=== PATIENT | female | born 1940 | race Caucasian/White ===

== ENCOUNTER 2018-05-02 13:35 | Emergency (ER) | payer MEDICARE, OTHER ==
[~2018-05-02] VITALS: Ht 157.5 cm; Wt 100.0 kg
[2018-05-02 14:09] VITALS: BP 179/91
== END 2018-05-02 16:51 | disposition home or self-care (01) ==
LOC: ER 13:35
DX: R25.2 Cramp and spasm (principal)
CPT/HCPCS: 93971; 99284

== ENCOUNTER 2023-10-31 10:34 | Day surgery (SDC) | payer BC ==
[2023-10-28 13:02] LABS: EOSINOPHILS # (AUTO) 0.1 X10'3 (0-0.9); HEMOGLOBIN 14.3 g/dl (12.0-16.0); LYMPHOCYTES # (AUTO) 2.3 X10'3 (1.1-4.8); MONOCYTES # (AUTO) 0.5 X10'3 (0-0.9)
[2023-10-28 13:03] LABS: BASOPHILS # (AUTO) 0.1 X10'3 (0-0.2); BASOPHILS % (AUTO) 0.7 % (0-1); HEMATOCRIT 42.6 % (35.0-45.0); LYMPHOCYTES % (AUTO) 28.6 % (21-51); MEAN CORPUSCULAR HEMOGLOBIN 30.7 PG (27.0-31.0); MEAN CORPUSCULAR HGB CONC 33.7 g/dL (33.0-36.5); MEAN CORPUSCULAR VOLUME 91.1 FL (78-98); MEAN PLATELET VOLUME 9.4 FL (7.4-10.4); MONOCYTES % (AUTO) 5.8 % (2-12); NEUTROPHILS # (AUTO) 5.2 X10'3 (1.8-7.7); NEUTROPHILS % (AUTO) 63.9 % (42-75); PLATELET COUNT 191 X10'3 (140-440); RED BLOOD COUNT 4.68 X10'6 (4.20-5.60); RED CELL DISTRIBUTION WIDTH 13.6 % (11.5-14.5); WHITE BLOOD COUNT 8.1 X10'3 (4.5-11.0)
[2023-10-28 13:14] LABS: APTT 28 SECONDS (22-32); PROTHROMBIN TIME 10.9 SECONDS (9.0-12.0)
[2023-10-28 13:19] LABS: ALBUMIN 3.3 G/DL (3.4-5.0); ANION GAP 9 (8-16); BLOOD UREA NITROGEN 21 MG/DL (7-18); BUN/CREATININE RATIO 17.8 (10.0-20.0); CALCIUM 9.2 MG/DL (8.5-10.1); CHLORIDE 101 MMOL/L (99-107); CHOL/HDL RATIO 4.1 (0.00-4.99); CHOLESTEROL 174 MG/DL (0-200); CREATININE 1.18 MG/DL (0.40-0.90); GLUCOSE 133 MG/DL (70-104); HDL CHOLESTEROL 42 MG/DL (35-60); LDL CHOLESTEROL 108 MG/DL (50-100); POTASSIUM 3.9 MMOL/L (3.5-5.1); SODIUM 136 MMOL/L (135-145); TRIGLYCERIDES 190 MG/DL (20-135); eGFR 44 ML/MIN
[~2023-10-31] VITALS: Ht 158.8 cm; Wt 92.0 kg
[2023-10-31] VITALS (8 sets, daily range): BP systolic 144–192; BP diastolic 58–105; PULSE 71–82; RESP 12–17; TEMP 97.8; O2SAT 93–96
[2023-10-31] MEDS ORDERED: FURO40TA4 PO (11:06)
[2023-10-31] MEDS ORDERED: OMEP20CA16 PO (11:06)
[2023-10-31] MEDS: normal saline 1000ml 1,000 ML IV SCH (12:32)
[2023-10-31] MEDS: LORazepam 0.5 MG tablet PO PRN (12:32)
[2023-10-31] MEDS: diphenhydrAMINE 25mg capsule PO PRN (12:33)
[2023-10-31] MEDS ORDERED: LIDOcaine 1% (10mg/ml) 2ml vial ONE (13:24)
[2023-10-31] MEDS ORDERED: heparin 1,000unit/ml 10ml vial 10 ML ONE (13:25)
[2023-10-31] MEDS ORDERED: midazolam 1 mg/ML 2ml injection ONE (13:25)
[2023-10-31] MEDS ORDERED: iohexol 350MG/ML 100ml bottle IV ONE (13:25)
[2023-10-31] MEDS ORDERED: verapamil 2.5 mg/ml inj IV ONE (13:25)
[2023-10-31] MEDS ORDERED: fentaNYL/PF 50MCG/1 ML 2ML syringe ONE (13:25)
[2023-10-31] MEDS ORDERED: nitroGLYCERIN 500mcg/5mL D5W 5 ML IV ONE (13:26)
[2023-10-31] MEDS ORDERED: HYDROcodone/acetaminophen 10/325mg tab PO PRN (14:45)
[2023-10-31] MEDS ORDERED: HYDROcodone/acetaminophen 5mg/325mg tablet PO PRN (14:45)
[2023-10-31 15:31] LABS: ISTAT HGB ART 13.3 g/dl (12.0-16.0); ISTAT Hct ART 39 %PCV (35-45); ISTAT O2 SATURATION ARTERIAL 94 % (95-98); ISTAT SOURCE ART
[2023-11-01 06:29] LABS: ISTAT HGB MIX 13.9 g/dl (12.0-16.0); ISTAT Hct MIX 41 %PCV (35-45); ISTAT O2 SATURATION MIX VENOUS 69 % (60-80); ISTAT SOURCE VEN
== END 2023-10-31 16:42 | disposition home or self-care (01) ==
LOC: SSTAY O 10:34
PROVIDERS: ATTEND Student in an Organized Health Care Education/Training Program
DX: I35.0 Nonrheumatic aortic (valve) stenosis (principal); I49.3 Ventricular premature depolarization; I10 Essential (primary) hypertension; E78.00 Pure hypercholesterolemia, unspecified; Z79.899 Other long term (current) drug therapy; Z98.890 Other specified postprocedural states; Z88.8 Allergy status to other drugs, medicaments and biological substances
CPT/HCPCS: 36415; 80048; 80061; 82803; 85014; 85025; 85610; 85730; 93005; 93456; 99152; J1644; J2250; J3010; J3490; J7030; Q0163; Q9967; 99153; A6258; A6402; C1751; C1769; C1894

== ENCOUNTER → 2023-11-28 | Outpatient (CLI) | payer BC ==
[~2023-11-28] MED LIST: FURO40TA4 PO; IODIXANOL 320 MG/ML INFUS..BTL 100ML IV ONE; OMEP20CA16 PO; metoprolol tartrate 1mg/ml inj IV ONE
[2023-11-28 11:38] LABS: EOSINOPHILS # (AUTO) 0.1 X10'3 (0-0.9); HEMOGLOBIN 14.4 g/dl (12.0-16.0); LYMPHOCYTES # (AUTO) 2.1 X10'3 (1.1-4.8); MEAN PLATELET VOLUME 9.9 FL (7.4-10.4); MONOCYTES # (AUTO) 0.6 X10'3 (0-0.9); RED CELL DISTRIBUTION WIDTH 14.1 % (11.5-14.5)
[2023-11-28 11:41] LABS: BASOPHILS # (AUTO) 0.1 X10'3 (0-0.2); BASOPHILS % (AUTO) 0.7 % (0-1); EOSINOPHILS % (AUTO) 1.7 % (0-6); HEMATOCRIT 43.9 % (35.0-45.0); LYMPHOCYTES % (AUTO) 27.8 % (21-51); MEAN CORPUSCULAR HEMOGLOBIN 30.3 PG (27.0-31.0); MEAN CORPUSCULAR HGB CONC 32.9 g/dL (33.0-36.5); MONOCYTES % (AUTO) 7.8 % (2-12); NEUTROPHILS # (AUTO) 4.6 X10'3 (1.8-7.7); PLATELET COUNT 174 X10'3 (140-440); RED BLOOD COUNT 4.77 X10'6 (4.20-5.60); WHITE BLOOD COUNT 7.4 X10'3 (4.5-11.0)
[2023-11-28 11:54] LABS: APTT 27 SECONDS (22-32); PROTHROMBIN TIME 10.8 SECONDS (9.0-12.0)
[2023-11-28 11:57] LABS: ALANINE AMINOTRANSFERASE 20 U/L (12-78); ALBUMIN 3.2 G/DL (3.4-5.0); ALBUMIN/GLOBULIN RATIO 0.7 (1.1-1.5); ALKALINE PHOSPHATASE 102 IU/L (46-116); ANION GAP 9 (8-16); ASPARTATE AMINO TRANSFERASE 17 U/L (10-37); BILIRUBIN,TOTAL 0.3 MG/DL (0.1-1.0); BLOOD UREA NITROGEN 22 MG/DL (7-18); CALCIUM 9.1 MG/DL (8.5-10.1); CHLORIDE 105 MMOL/L (99-107); CREATININE 1.16 MG/DL (0.40-0.90); GLUCOSE 104 MG/DL (70-104); POTASSIUM 4.2 MMOL/L (3.5-5.1); SODIUM 140 MMOL/L (135-145); TOTAL CARBON DIOXIDE 25.8 MMOL/L (24-32); TOTAL PROTEIN 7.7 G/DL (6.4-8.2); eGFR 45 ML/MIN
[2023-11-28 12:03] LABS: PRO BRAIN NATRIURETIC PEPTIDE 208 PG/ML (0-450)
== END | disposition home or self-care (01) ==
LOC: RAD 10:55
PROVIDERS: ATTEND Internal Medicine Cardiovascular Disease
DX: K57.30 Diverticulosis of large intestine without perforation or abscess without bleeding (principal); I70.90 Unspecified atherosclerosis; J39.8 Other specified diseases of upper respiratory tract; E04.1 Nontoxic single thyroid nodule; I65.29 Occlusion and stenosis of unspecified carotid artery; I35.0 Nonrheumatic aortic (valve) stenosis; R06.02 Shortness of breath; Z90.711 Acquired absence of uterus with remaining cervical stump
CPT/HCPCS: 71046; 71275; 74174; 75572; 80053; 83880; 85025; 85610; 85730; J3490; Q9967

== ENCOUNTER 2024-01-19 05:55 | Inpatient (IN) | payer BC ==
[2024-01-11 15:46] LABS: BASOPHILS # (AUTO) 0.1 X10'3 (0-0.2); BASOPHILS % (AUTO) 0.8 % (0-1); EOSINOPHILS # (AUTO) 0.1 X10'3 (0-0.9); EOSINOPHILS % (AUTO) 1.5 % (0-6); LYMPHOCYTES # (AUTO) 3.1 X10'3 (1.1-4.8); LYMPHOCYTES % (AUTO) 34.3 % (21-51); MEAN CORPUSCULAR HEMOGLOBIN 30.5 PG (27.0-31.0); MEAN CORPUSCULAR HGB CONC 33.2 g/dL (33.0-36.5); MEAN CORPUSCULAR VOLUME 91.9 FL (78-98); MEAN PLATELET VOLUME 9.7 FL (7.4-10.4); MONOCYTES # (AUTO) 0.6 X10'3 (0-0.9); MONOCYTES % (AUTO) 6.2 % (2-12); NEUTROPHILS # (AUTO) 5.2 X10'3 (1.8-7.7); NEUTROPHILS % (AUTO) 57.2 % (42-75); PRE OP HEMATOCRIT 44.6 % (35.0-45.0); PRE OP HEMOGLOBIN 14.8 g/dL (12.0-16.0); PRE OP PLATELET COUNT 206 X10'3 (140-440); RED BLOOD COUNT 4.85 X10'6 (4.20-5.60); RED CELL DISTRIBUTION WIDTH 13.9 % (11.5-14.5)
[2024-01-11 15:50] LABS: BILIRUBIN,URINE NEGATIVE (Neg); CLARITY,URINE SLIGHTLY CLOUDY (Clear); COLOR,URINE YELLOW (Yellow); GLUCOSE, URINE NEGATIVE (Neg); KETONES,URINE NEGATIVE (Neg); LEUKOCYTE ESTERASE ,URINE LARGE (Neg); NITRITES, URINE NEGATIVE (Neg); OCCULT BLOOD,URINE TRACE-INTACT (Neg); PROTEIN,URINE NEGATIVE (Neg); UROBILINOGEN,URINE 0.2 E.U/dL (0.2-1.0)
[2024-01-11 15:51] LABS: UA COLLECTION TYPE CLN CATCH MIDSTREAM
[2024-01-11 15:57] LABS: WBC,URINE 30-50 /HPF (0-4)
[2024-01-11 15:58] LABS: BACTERIA,URINE 2+ /HPF (Neg); RBC,URINE NONE SEEN /HPF (0-2); SQUAMOUS EPITHELIAL CELL,UR MODERATE /LPF (FEW)
[2024-01-11 16:25] LABS: PRE OP INR 1.1 INR; PRE OP PROTIME 11.3 SECONDS (9.0-12.0)
[2024-01-11 16:28] LABS: ALBUMIN 3.4 G/DL (3.4-5.0); ALBUMIN/GLOBULIN RATIO 0.7 (1.1-1.5); ALKALINE PHOSPHATASE 120 IU/L (46-116); BLOOD UREA NITROGEN 22 MG/DL (7-18); BUN/CREATININE RATIO 19.8 (10.0-20.0); CALCIUM 9.4 MG/DL (8.5-10.1); CHLORIDE 103 MMOL/L (99-107); CREATININE 1.11 MG/DL (0.40-0.90); PRE OP ALT 15 U/L (30-65); PRE OP ANION GAP 7 (8-16); PRE OP AST 14 U/L (10-37); PRE OP BILIRUB, TOTAL 0.6 MG/DL (0.0-1.0); PRE OP GLUCOSE 120 MG/DL (70-104); PRE OP POTASSIUM 3.4 MMOL/L (3.4-5.1); PRE OP SODIUM 139 MMOL/L (135-145); PRO BRAIN NATRIURETIC PEPTIDE 283 PG/ML (0-450); TOTAL CARBON DIOXIDE 28.7 MMOL/L (24-32); TOTAL PROTEIN 8.1 G/DL (6.4-8.2); eGFR 47 ML/MIN
[2024-01-18] MEDS: phenylephrine inj 50 MG in normal saline 250ml IV solN IV SCH (11:40)
[2024-01-18] MEDS: nitroPRUSSIDE (NIPRIDE) (200MCG/ML) 100ML Drip IV SCH (11:40)
[~2024-01-19] VITALS: Ht 157.5 cm; Wt 91.4 kg
[2024-01-19] VITALS (27 sets, daily range): BP systolic 120–205; BP diastolic 57–124; PULSE 70–106; RESP 10–18; TEMP 97.3–97.9; O2SAT 94–100
[2024-01-19] MEDS: cefazolin 2gm/D5W 100mL 100 ML IV ONE (05:30)
[2024-01-19] MEDS: vancomycin 1,500 MG in NS 300ml IV soln IV ONE (05:30)
[~2024-01-19 05:55] MED LIST changes: +ASPI81TA52 PO; +CHOL200013 PO; +CYAN100097 PO; -IODIXANOL 320 MG/ML INFUS..BTL 100ML IV ONE; +aspirin 325mg tablet PO ONE; -metoprolol tartrate 1mg/ml inj IV ONE
[2024-01-19] MEDS ORDERED: heparin 1,000 UNITS/NS 500ml 1,500 ML ONE (06:32)
[2024-01-19] MEDS ORDERED: iohexol 350MG/ML 100ml bottle IV ONE (06:32)
[2024-01-19] MEDS ORDERED: LIDOcaine 1% 30ml preserv. free vial ONE (06:32)
[2024-01-19] MEDS: famotidine 20mg tablet PO ONE (06:48)
[2024-01-19] MEDS: aspirin 325mg tablet PO ONE (06:48)
[2024-01-19] MEDS: ringers solution, lacted 1,000 ML IV SCH ×2 (06:49→20:36)
[2024-01-19] MEDS ORDERED: fentaNYL/PF 50MCG/1 ML 2ML syringe ONE (06:58)
[2024-01-19] MEDS ORDERED: heparin 1,000unit/ml 10ml vial 10 ML ONE (07:38)
[2024-01-19] MEDS ORDERED: ePHEDrine 50MG/ML INJ. ONE (07:38)
[2024-01-19] MEDS ORDERED: 0.9 % SODIUM CHLORIDE 10 ML VIAL ONE (07:38)
[2024-01-19] MEDS ORDERED: midazolam 1 mg/ML 2ml injection ONE (07:38)
[2024-01-19] MEDS: furosemide 40mg tablet PO SCH (08:00)
[2024-01-19] MEDS: cholecalciferol (vitamin D3) 1,000 unit (25mcg) tablet PO SCH (08:00)
[2024-01-19] MEDS: aspirin 81mg, enteric-coated 1 TAB TABLET.DR PO SCH (08:00)
[2024-01-19] MEDS ORDERED: propofol inj 20 ML IV ONE ×2 (08:07)
[2024-01-19] MEDS ORDERED: magnesium sulf-water 4G/100mL 100 ML IV PRN (08:30)
[2024-01-19] MEDS ORDERED: potassium Cl 40MEQ/270ML bag 250 ML IV PRN (08:30)
[2024-01-19] MEDS ORDERED: potassium CL 10mEq/100ml bag 100 ML IV PRN (08:30)
[2024-01-19] MEDS ORDERED: magnesium sulf-water 2g/50mL 50 ML IV PRN (08:30)
[2024-01-19] MEDS ORDERED: potassium Cl 20mEq/100mL bag 100 ML IV PRN (08:30)
[2024-01-19] MEDS ORDERED: labetalol 20mg/4ml (5mg/ml) syringe IV PRN (08:30)
[2024-01-19] MEDS ORDERED: diphenhydrAMINE 25mg capsule PO PRN (08:30)
[2024-01-19] MEDS ORDERED: acetaminophen 325mg tablet PO PRN (08:30)
[2024-01-19] MEDS ORDERED: potassium Cl 40MEQ/1/2NS 520ml 520 ML IV PRN (08:30)
[2024-01-19] MEDS ORDERED: ALPRAZolam 0.25mg tablet PO PRN (08:30)
[2024-01-19] MEDS ORDERED: ondansetron/PF 4mg/2ml inj IV PRN ×2 (08:30→09:50)
[2024-01-19] MEDS ORDERED: normal saline 1000ml 1,000 ML IV SCH (08:30)
[2024-01-19] MEDS ORDERED: docusate sod 100mg capsule PO PRN (08:30)
[2024-01-19] MEDS ORDERED: potassium Cl 20 mEq SR tablet PO PRN (08:30)
[2024-01-19] MEDS ORDERED: pantoprazole 40mg Tablet.DR PO PRN (08:30)
[2024-01-19] MEDS ORDERED: proCHLORperazine 10 MG/2 ml inj IV PRN (09:50)
[2024-01-19] MEDS ORDERED: morphine 4 MG/ML inj SYRINge IV PRN (09:50)
[2024-01-19] MEDS: hydrALAZINE 20mg/ml inj. IV PRN (09:50)
[2024-01-19] MEDS ORDERED: morphine 2 MG/ML inj. syringe IV PRN (09:50)
[2024-01-19] MEDS ORDERED: meperidine/PF 25mg/ml syringe IV PRN ×2 (09:50)
[2024-01-19] MEDS: pantoprazole 40mg Tablet.DR PO SCH (12:59)
[2024-01-19] MEDS: ceFAZolin 1GM/D5W- ADD-VANTAGE 50 ML IV SCH (16:04)
[2024-01-19] MEDS: HYDROcodone/acetaminophen 5mg/325mg tablet PO PRN (16:17)
[2024-01-19] MEDS: ondansetron/PF 4mg/2ml inj IV PRN (16:27)
[2024-01-19] MEDS: proCHLORperazine 10 MG/2 ml inj IV PRN (16:58)
[2024-01-19] MEDS: vancomycin/NS 1 GM ADD-VANTAGE 250 ML IV SCH (20:00)
[2024-01-19] MEDS ORDERED: AMOX-441 PO (20:17)
[2024-01-19] MEDS: protamine sulfate 10mg/ml inj. ONE (20:35)
[2024-01-19] MEDS: sod chloride 0.9% 10ml flush syringe IV SCH (21:35)
[2024-01-20 02:00] VITALS: BP 146/36; PULSE 87; RESP 14; TEMP 98.4; O2SAT 92
[2024-01-20 06:00] VITALS: BP 151/68; PULSE 77; RESP 20; TEMP 97.8; O2SAT 96
[2024-01-20 06:37] LABS: BASOPHILS % (AUTO) 0.4 % (0-1); EOSINOPHILS # (AUTO) 0.1 X10'3 (0-0.9); EOSINOPHILS % (AUTO) 0.8 % (0-6); HEMATOCRIT 40.2 % (35.0-45.0); HEMOGLOBIN 13.7 g/dl (12.0-16.0); LYMPHOCYTES # (AUTO) 1.5 X10'3 (1.1-4.8); LYMPHOCYTES % (AUTO) 15.5 % (21-51); MEAN CORPUSCULAR HEMOGLOBIN 31.3 PG (27.0-31.0); MEAN CORPUSCULAR HGB CONC 34.1 g/dL (33.0-36.5); MEAN CORPUSCULAR VOLUME 91.7 FL (78-98); MEAN PLATELET VOLUME 10.1 FL (7.4-10.4); MONOCYTES # (AUTO) 0.6 X10'3 (0-0.9); MONOCYTES % (AUTO) 6.3 % (2-12); NEUTROPHILS # (AUTO) 7.5 X10'3 (1.8-7.7); PLATELET COUNT 156 X10'3 (140-440); RED BLOOD COUNT 4.39 X10'6 (4.20-5.60); RED CELL DISTRIBUTION WIDTH 13.6 % (11.5-14.5); WHITE BLOOD COUNT 9.7 X10'3 (4.5-11.0)
[2024-01-20 07:00] LABS: ALANINE AMINOTRANSFERASE 12 U/L (12-78); ALBUMIN/GLOBULIN RATIO 0.7 (1.1-1.5); ALKALINE PHOSPHATASE 101 IU/L (46-116); ANION GAP 9 (8-16); BILIRUBIN,TOTAL 0.8 MG/DL (0.1-1.0); BLOOD UREA NITROGEN 13 MG/DL (7-18); BUN/CREATININE RATIO 13.1 (10.0-20.0); CALCIUM 9.1 MG/DL (8.5-10.1); CHLORIDE 104 MMOL/L (99-107); CREATININE 0.99 MG/DL (0.40-0.90); GLUCOSE 112 MG/DL (70-104); MAGNESIUM 1.8 MG/DL (1.5-2.4); PRO BRAIN NATRIURETIC PEPTIDE 821 PG/ML (0-450); SODIUM 138 MMOL/L (135-145); TOTAL CARBON DIOXIDE 24.8 MMOL/L (24-32); TOTAL PROTEIN 7.4 G/DL (6.4-8.2); eCRCL 35 ML/MIN; eGFR 54 ML/MIN
[2024-01-20 07:05] LABS: ASPARTATE AMINO TRANSFERASE 24 U/L (10-37); POTASSIUM 3.9 MMOL/L (3.5-5.1)
[2024-01-20] MEDS: aspirin 81mg tab.chew PO SCH (07:56)
[2024-01-20 08:15] VITALS: RESP 20; O2SAT 96
[2024-01-20] MEDS ORDERED: cyanocobalamin 500mcg tablet PO SCH (08:19)
[2024-01-20 11:39] VITALS: BP 102/60; PULSE 83; RESP 16; TEMP 98.5; O2SAT 94
[2024-01-20] MEDS: vancomycin/NS 1 GM ADD-VANTAGE 250 ML IV ONE (12:13)
[2024-01-20] MEDS: amoxicillin 250mg capsule PO SCH (13:20)
[2024-01-20 14:33] VITALS: BP 118/87; PULSE 81; RESP 14; O2SAT 95
== END 2024-01-20 15:04 | disposition home or self-care (01) | DRG 267 ==
LOC: PAS IN 05:55 → PCU 3S 19:00 → S STAY 01-20 12:16
PROVIDERS: ADMIT Internal Medicine Cardiovascular Disease; ATTEND Internal Medicine Cardiovascular Disease
PROC: 027F3ZZ Dilation of Aortic Valve, Percutaneous Approach (ICD-10-PCS; 2024-01-19)
PROC: 03HY32Z Insertion of Monitoring Device into Upper Artery, Percutaneous Approach (ICD-10-PCS; 2024-01-19)
PROC: B41D1ZZ Fluoroscopy of Aorta and Bilateral Lower Extremity Arteries using Low Osmolar Contrast (ICD-10-PCS; 2024-01-19)
PROC: 02RF38Z Replacement of Aortic Valve with Zooplastic Tissue, Percutaneous Approach (ICD-10-PCS; principal; 2024-01-19 07:26)
DX: I35.0 Nonrheumatic aortic (valve) stenosis (principal); Z00.6 Encounter for examination for normal comparison and control in clinical research program; N39.0 Urinary tract infection, site not specified; I10 Essential (primary) hypertension; Z88.8 Allergy status to other drugs, medicaments and biological substances; Z88.1 Allergy status to other antibiotic agents
CPT/HCPCS: 33361; 36415; 71045; 71046; 76937; 80053; 81001; 83735; 83880; 85025; 85347; 85610; 85730; 86885; 86900; 86901; 86920; 87077; 87081; 87088; 87186; 93005; 93308; A4618; A6258; A6402; A6449; C1756; C1758; C1760; C1769; C1894; G0378; J0360; J0690; J0780; J1644; J2250; J2371; J2405; J2704; J2720; J3010; J3370; J3490; J7040; J7050; J7120; Q9967